=== PATIENT | female | born 2005 | race African-American/Black ===

== ENCOUNTER → 2023-10-02 | Day surgery (SDC) | payer OTHER ==
[2023-10-01 12:44] LABS: BASOPHILS % 0.4 % (0.0-1.0); EOSINOPHILS % 0.6 % (0.0-6.0); HEMATOCRIT 40.6 % (34.2-44.1); HEMOGLOBIN 12.6 g/dL (12.0-16.0); LYMPHOCYTES # (AUTO) 2.6 (1.0-3.2); LYMPHOCYTES % 49.5 % (18.0-39.1); MEAN CORPUSCULAR HEMOGLOBIN 25.8 pg (28-32); MEAN CORPUSCULAR VOLUME 83.2 fL (81-99); MONOCYTES # (AUTO) 0.5 (0.2-0.8); MONOCYTES % 8.8 % (4.4-11.3); NEUTROPHILS # (AUTO) 2.2 (2.1-6.9); NEUTROPHILS % 40.3 % (38.7-80.0); PLATELET COUNT 338 x10e3/uL (140-360); RED BLOOD COUNT 4.88 x10e6/uL (3.6-5.1); RED CELL DISTRIBUTION WIDTH 14.2 % (11.7-14.4); WHITE BLOOD COUNT 5.33 x10e3/uL (4.8-10.8)
[~2023-10-02] MED LIST: ACETAMINOPHEN 1000 MG/100 ML IV ONE; BUPIVACAINE HCL 0.5% INJ 30 ML VIAL INJ ONE; CEPHALEXIN500 MG PO; DEXAMETHASONE SOD PHOS INJ 4 MG/ML SDV ONE; FAMOTIDINE 20 MG/2 ML VIAL IV ONE; FENTANYL CITRATE/PF 100MCG/2 ML INJ ONE; IBUPROFEN PO; LIDOCAINE HCL 2% LOCAL INJ 5 ML SDV VIAL INJ ONE; MIDAZOLAM HCL 2 MG/2 ML VIAL ONE; ONDANSETRON HCL INJ 2MG/ML 2ML 2 MG/ML VIAL ONE; PROPOFOL IV EMULSION 10 MG/ML 20 ML VIAL ONE
[2023-10-02] MEDS: CEFAZOLIN SODIUM 2 GM ONE (09:08)
[2023-10-02] MEDS: LACTATED RINGER'S 1,000 ML ONE (09:09)
[2023-10-02] MEDS: MEPERIDINE HCL INJ 25 MG/ML VIAL ONE (10:42)
[2023-10-02] MEDS: HYDROCODONE/APAP 5MG-325MG TAB ONE (11:20)
[2023-10-02 13:20] VITALS: BP 131/70; PULSE 71; RESP 16; O2SAT 97
== END | disposition home or self-care (01) ==
LOC: OR 08:21
PROVIDERS: ATTEND Surgery
DX: S90.852A Superficial foreign body, left foot, initial encounter (principal); S90.851A Superficial foreign body, right foot, initial encounter; E66.01 Morbid (severe) obesity due to excess calories; E28.2 Polycystic ovarian syndrome; W34.010A Accidental discharge of airgun, initial encounter; Z01.812 Encounter for preprocedural laboratory examination; Z79.1 Long term (current) use of non-steroidal anti-inflammatories (NSAID)
CPT/HCPCS: 10120; 36415; 76000; 84702; 85025; J0131; J1100; J2001; J2175; J2250; J2405; J2704; J3010; J7121